=== PATIENT | female | born 1970 | race Caucasian/White ===

== ENCOUNTER 2018-08-19 01:48 | Inpatient (IN) | payer OTHER ==
[~2018-08-19] VITALS: Ht 165.1 cm; Wt 105.0 kg
[2018-08-19] VITALS (26 sets, daily range): BP systolic 138–178; BP diastolic 35–99; PULSE 80–96; RESP 16–20; Ht 165.1 cm; Wt 105.0 kg
[2018-08-19] MEDS ORDERED: DOCUSATE SODIUM 100 MG CAP PO PRN (03:30)
[2018-08-19] MEDS ORDERED: NACL 0.9% 3 ML SYG IV SCH ×2 (03:30)
[2018-08-19] MEDS ORDERED: BISACODYL (EC) 5 MG TAB PO PRN (03:30)
[2018-08-19] MEDS ORDERED: ONDANSETRON 4 MG TAB PO PRN (03:30)
[2018-08-19] MEDS ORDERED: DEXTROSE 50% 50 ML SYRINGE IV PRN ×2 (04:00)
[2018-08-19] MEDS ORDERED: GLUCAGON 1 MG INJ IM PRN (04:00)
[2018-08-19] MEDS ORDERED: GLUCOSE GEL 15 GRAM TUBE PO PRN ×2 (04:00)
[2018-08-19] MEDS ORDERED: GLUCOSE GEL 15 GRAM TUBE BUCCAL PRN (04:00)
--- NOTE | 2018-08-19 07:26 | HP ---
Date/Time of Note Date/Time of Note DATE: 08/19/18 TIME: 07:12 Assessment/Plan VTE Prophylaxis SCD applied (from Nsg): Yes Pharmacological prophylaxis: NA/contraindicated Pharm contraindication: low risk/ambulating Lines/Catheters IV Catheter Type (from Nrsg): Saline Lock Urinary Cath still in place: No Assessment/Plan Hospital Course This is a 48 old female being admitted to the telemetry floor for observation for: #1 dyspnea: Likely secondary to volume overload from hypertensive urgency. Patient did receive Lasix at the transfer facility. At the current time she is not in any acute distress. She has mild crackles at the base. Will consult nephrology for dialysis today. Avoid any nephrotoxic agents. #2 chest discomfort: Likely secondary from volume overload however will rule out ACS. She is currently not complaining of any chest pain. Will nonetheless check cardiac enzymes x2. Will check an echocardiogram. #3 hypertensive urgency: Blood pressure on arrival is improved at systolic of 164. PRN hydralazine. For systolic greater than 170 and will need to continue patient's Coreg #4 end-stage renal disease: On hemodialysis Sunday, again we will dialyze the patient today. Please see #1. Will consult nephrology Dr. Barclay #5 hypertension: Continue Coreg #6. Diabetes mellitus: We will check hemoglobin A1c, continue patient's home insulin regimen of insulin lispro 25 units subcu q. before meals, Insulin detemir 45 units subcu a.m., Insulin detemir 55 units subcu at bedtime, insulin sliding scale #7Hyperlipidemia: Continue statin #8. DVT GI prophylaxis: SCDs, no GI prophylaxis indicated Further treatment strategy will be implemented as per the clinical course. Result Diagram: 08/19/18 0433 08/19/18 0433 Results 24hrs Laboratory Tests Test 08/19/18 04:33 White Blood Count 11.1 H Red Blood Count 3.38 L Hemoglobin 10.0 L Hematocrit 30.5 L Mean Corpuscular Volume 90.2 Mean Corpuscular Hemoglobin 29.6 Mean Corpuscular Hemoglobin Concent 32.8 Red Cell Distribution Width 12.9 Platelet Count 162 Mean Platelet Volume 11.8 H Immature Granulocytes % 0.300 Neutrophils % 73.3 Lymphocytes % 18.0 Monocytes % 6.0 Eosinophils % 1.9 Basophils % 0.5 Nucleated Red Blood Cells % 0.0 Immature Granulocytes # 0.030 Neutrophils # 8.1 H Lymphocytes # 2.0 Monocytes # 0.7 Eosinophils # 0.2 Basophils # 0.1 Nucleated Red Blood Cells # 0.0 Sodium Level 137 Potassium Level 5.0 Chloride Level 101 Carbon Dioxide Level 22 Anion Gap 14 H Blood Urea Nitrogen 78 H Creatinine 6.90 H Est Glomerular Filtrat Rate mL/min 6 L Glucose Level 299 H Hemoglobin A1c 9.1 H Calcium Level 8.3 L Magnesium Level 2.1 Total Bilirubin 0.4 Direct Bilirubin 0.00 Indirect Bilirubin 0.4 Aspartate Amino Transf (AST/SGOT) 13 L Alanine Aminotransferase (ALT/SGPT) 15 Alkaline Phosphatase 153 H Total Protein 6.6 Albumin 3.3 Globulin 3.30 H Albumin/Globulin Ratio 1.00 Serum HCG, Qualitative NEGATIVE HPI/ROS Admit Date/Time Admit Date/Time Aug 19, 2018 at 02:22 Hx of Present Illness Chief complaint: 3 days of shortness of breath and mild chest discomfort next This is a 48 old female with a past medical history of hypertension insulin- dependent diabetes mellitus and end-stage renal disease on dialysis Sunday who presented to [facility] complaining of 3 days of shortness of breath. Patient reported that she had progressively worsening shortness of breath starting on Sunday. It was associated with some mild ches t discomfort with associated bilateral lower extremity edema and orthopnea. She reported the pain in her chest was central and nonradiating and nonexertional. She received dialysis last Sunday. She denies any fevers chills cough. She denies having any hemoptysis or melena or hematochezia. Upon arrival to [facility] patient was noted to be in no acute distress. She denied any chest pain. She did report that her shortness of breath is slightly improved. Pertinent laboratory findings from the transferring facility please see chart for full details: Vitals: Temperature 98.6/respirations 20/heart rate 100/BP 183/90 2/100% on room air CBC: White blood cell count 8.6/hemoglobin 11.3/hematocrit 34/platelets 158 BMP: Sodium 132/potassium 4.1/chloride 91/carbon dioxide 25/creatinine 6 glucose 523 ProBNP 5744 Troponin 36 with a repeat 38 delta troponin 2 Chest x-ray: Cardiomegaly. Mild vascular congestion without definitive edema. Next EKG: Normal sinus rhythm with normal intervals. No ST elevations or depressions. Allergies: NKDA Medications: Aspirin 81 mg p.o. daily Lasix 40 mg p.o. twice daily daily Calcium acetate 657 mg p.o. daily Coreg 12.5 mg p.o. twice daily Gabapentin 300 mg p.o. Sunday Insulin lispro 25 units subcu q. before meals Insulin detemir 45 units subcu a.m. Insulin detemir 55 units subcu at bedtime Folic acid 1 mg p.o. daily Atorvastatin 40 mg p.o. nightly ROS Const: As per HPI Eyes : No pain discharge or redness or change in visual acuity ENT: No pain, sore throat, congestion, congestion, dysphagia or discharge Respiratory: As per HPI Cardiovascular: As per HPI GI : no change in appetite, abdominal pain, nausea, vomiting, diarrhea, constipation, or change in the color his stool Genitourinary: No dysuria, hematuria, flank pain , discharge or CVA tenderness Musculoskeletal: No joint pain, back pain, neck pain, restricted range of motion in neck or joints Skin: No rash, bruising or hives Neuro: No headache, dizziness, syncope, seizure, focal weakness Endocrine: No polyuria, polydipsia, temperature intolerance Psych: No hallucination, depression, anxiety or suicidal ideation PMH/Family/Social Past Medical History Hypertension, hypercholesterolemia, insulin dependent diabetes mellitus, end- stage renal disease on hemodialysis, left eye blindness secondary to diabetic retinopathy Medications Current Medications IV Flush (NS 3 ml) 3 ml PER PROTOCOL IV ; Start 08/19/18 at 03:30 IV Flush (NS 3 ml) 3 ml PER PROTOCOL IV ; Start 08/19/18 at 03:30 Ondansetron HCl (Zofran Tab) 4 mg Q6H PRN PO NAUSEA/VOMITING; Start 08/19/18 at 03:30 Acetaminophen (Tylenol Tab) 650 mg Q6H PRN PO .PAIN 1-3 OR TEMP; Start 08/19/18 at 03:30 Docusate Sodium (Colace) 100 mg Q12H PRN PO .CONSTIPATION; Start 08/19/18 at 03:30 Bisacodyl (Dulcolax) 5 mg DAILY PRN PO .CONSTIPATION; Start 08/19/18 at 03:30 Diagnostic Test (Pha) (Accu-Chek) 1 ea 02 XX ; Start 08/20/18 at 02:00 Insulin Aspart (Novolog Insulin Pen) NOVOLOG *MILD* ALGORITHM WITH MEALS BEDTIME SC ; Start 08/19/18 at 07:55 Miscellaneous Information 1 ea NOTE XX ; Start 08/19/18 at 04:00 Glucose (Glutose) 15 gm Q15M PRN PO DECREASED GLUCOSE; Start 08/19/18 at 04:00 Glucose (Glutose) 22.5 gm Q15M PRN PO DECREASED GLUCOSE; Start 08/19/18 at 04:00 Dextrose (D50w Syringe) 25 ml Q15M PRN IV DECREASED GLUCOSE; Start 08/19/18 at 04:00 Dextrose (D50w Syringe) 50 ml Q15M PRN IV DECREASED GLUCOSE; Start 08/19/18 at 04:00 Glucagon (Glucagen) 1 mg Q15M PRN IM DECREASED GLUCOSE; Start 08/19/18 at 04:00 Glucose (Glutose) 15 gm Q15M PRN BUCCAL DECREASED GLUCOSE; Start 08/19/18 at 04:00 Coded Allergies: No Known Allergy (Unverified , 08/19/18) Past Surgical History Right chest permacath, failed left upper extremity AV fistula, x1, left eye surgery Family History Significant Family History: no pertinent family hx Social History Alcohol Use: none Smoking Status: Never smoker Drug Use: none Exam/Review of Systems Vital Signs Vitals Vital Signs Date Temp Pulse Resp B/P (MAP) Pulse Ox O2 O2 Flow FiO2 Time Delivery Rate 08/19/18 98.0 96 20 141/73 98 04:37 (95) 08/19/18 Room Air 02:30 Exam Exam General: This is a pleasant female currently sitting upright in bed in no acute distress HEENT: Atraumatic, normocephalic. The pupils are equal, round and reactive. Extraocular motor are intact Neck: Supple with full range of motion. No rigidity or meningismus Chest: Nontender Lungs: Breath sounds slightly diminished bilaterally, no overt wheezing appreciated, mild crackles at the bases Heart: Normal S1-S2, Regular rhythm and rate. 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 No guarding no rebound tenderness , No masses or organomegaly. No costovertebral temporal angle mass Extremities: Right great toe blister Neurologic: Normal mental status, speech normal, cranial nerves II through XII are intact, motor and sensory are intact, ZARIA CAM Aug 19, 2018 07:23
[2018-08-19] MEDS ORDERED: ASPI-817 PO (08:10)
[2018-08-19] MEDS ORDERED: CARV12.579 PO (08:10)
[2018-08-19] MEDS ORDERED: CALC667C PO (08:10)
[2018-08-19] MEDS ORDERED: FOLI-49 PO (08:10)
[2018-08-19] MEDS ORDERED: GABA300C16 PO (08:10)
[2018-08-19] MEDS ORDERED: INSU100C SQ (08:10)
[2018-08-19] MEDS ORDERED: ATOR40TA68 PO (08:10)
[2018-08-19] MEDS ORDERED: FURO40TA4 PO (08:10)
[2018-08-19] MEDS ORDERED: LEVEM (08:10)
[2018-08-19] MEDS: ACETAMINOPHEN 325 MG TAB PO PRN ×2 (08:13→19:43)
[2018-08-19] MEDS: INSULIN ASPART [NOVOLOG] 3 ML PEN SC SCH ×6 (08:35→20:24)
[2018-08-19] MEDS: GABAPENTIN 300 MG CAP PO SCH (12:12)
[2018-08-19] MEDS: CALCIUM ACETATE 667 MG CAP PO SCH ×2 (12:12→17:46)
[2018-08-19] MEDS: ASPIRIN (EC) 81 MG TAB PO SCH (12:15)
--- NOTE | 2018-08-19 12:16 | PN ---
Date/Time of Note Date/Time of Note DATE: 08/19/18 TIME: 12:15 Objective Vitals Vital Signs Date Temp Pulse Resp B/P (MAP) Pulse Ox O2 O2 Flow FiO2 Time Delivery Rate 08/19/18 98.5 87 18 173/86 97 Room Air 11:13 (115) Results Result Diagram: 08/19/18 0433 08/19/18 0433 Medications Medications Current Medications IV Flush (NS 3 ml) 3 ml PER PROTOCOL IV ; Start 08/19/18 at 03:30 IV Flush (NS 3 ml) 3 ml PER PROTOCOL IV ; Start 08/19/18 at 03:30 Ondansetron HCl (Zofran Tab) 4 mg Q6H PRN PO NAUSEA/VOMITING; Start 08/19/18 at 03:30 Acetaminophen (Tylenol Tab) 650 mg Q6H PRN PO .PAIN 1-3 OR TEMP Last administered on 08/19/18at 08:13; Admin Dose 650 MG; Start 08/19/18 at 03:30 Docusate Sodium (Colace) 100 mg Q12H PRN PO .CONSTIPATION; Start 08/19/18 at 03:30 Bisacodyl (Dulcolax) 5 mg DAILY PRN PO .CONSTIPATION; Start 08/19/18 at 03:30 Diagnostic Test (Pha) (Accu-Chek) 1 ea 02 XX ; Start 08/20/18 at 02:00 Insulin Aspart (Novolog Insulin Pen) NOVOLOG *MILD* ALGORITHM WITH MEALS BEDTIME SC Last administered on 08/19/18at 12:11; Admin Dose 4 UNIT; Start 08/19/18 at 07:55 Miscellaneous Information 1 ea NOTE XX ; Start 08/19/18 at 04:00 Glucose (Glutose) 15 gm Q15M PRN PO DECREASED GLUCOSE; Start 08/19/18 at 04:00 Glucose (Glutose) 22.5 gm Q15M PRN PO DECREASED GLUCOSE; Start 08/19/18 at 04:00 Dextrose (D50w Syringe) 25 ml Q15M PRN IV DECREASED GLUCOSE; Start 08/19/18 at 04:00 Dextrose (D50w Syringe) 50 ml Q15M PRN IV DECREASED GLUCOSE; Start 08/19/18 at 04:00 Glucagon (Glucagen) 1 mg Q15M PRN IM DECREASED GLUCOSE; Start 08/19/18 at 04:00 Glucose (Glutose) 15 gm Q15M PRN BUCCAL DECREASED GLUCOSE; Start 08/19/18 at 04:00 Aspirin (Halfprin) 81 mg DAILY PO Last administered on 08/19/18at 12:15; Admin Dose 81 MG; Start 08/19/18 at 12:00 Atorvastatin Calcium (Lipitor) 40 mg QHS PO ; Start 08/19/18 at 21:00 Calcium Acetate (Phoslo) 667 mg WITH MEALS PO Last administered on 08/19/18at 12:12; Admin Dose 667 MG; Start 08/19/18 at 11:50 Carvedilol (Coreg) 12.5 mg BID PO ; Start 08/19/18 at 21:00 Folic Acid (Folic Acid) 1 mg DAILY PO ; Start 08/20/18 at 09:00 Furosemide (Lasix) 40 mg BID DIURETICS PO ; Start 08/19/18 at 21:00 Gabapentin (Neurontin) 600 mg MONWEDFRI PO Last administered on 08/19/18at 12:12; Admin Dose 600 MG; Start 08/19/18 at 12:00 Insulin Glargine (Lantus) 21 units DAILY@2000 SC ; Start 08/19/18 at 20:00 Insulin Aspart (Novolog Insulin Pen) 7 unit WITH MEALS SC Last administered on 08/19/18at 12:11; Admin Dose 7 UNIT; Start 08/19/18 at 11:50 VTE Prophylaxis Risk score (from Nsg)>0 risk: 1 SCD applied (from Ns): Yes Lines/Catheters IV Catheter Type: Gotti in Place: No Assessment/Plan Hospital Course Short progress note as H&P was done earlier today, patient has no chest pain, no shortness of breath, will continue to trend troponins, podiatry will be seen for patient has a unexplained right foot hematoma, likely secondary to trauma, x-ray pending. Patient feels well, if no further issues will likely be discharged tomorrow unless podiatry has other plans. JASON ALMENDAREZ Aug 19, 2018 12:16
--- NOTE | 2018-08-19 14:14 | CONS ---
DATE OF ADMISSION: 08/19/2018 DATE OF CONSULTATION: 08/19/2018 TYPE OF CONSULTATION: Nephrology. REASON FOR CONSULTATION: End-stage renal disease. REQUESTING PHYSICIAN: Royal Cam MD HISTORY OF PRESENT ILLNESS: This is a 48-year-old female with a past medical history of end-stage re nal disease on dialysis Sunday, Sunday, Sunday with access of PermCath. History of hypertension, history of diabetes, history of dyslipidemia, who presented to outside hospital to be due to shortnes s of breath. The patient states that she has had progressive shortness of breath since Sunday with mild chest discomfort. The patient denied any hemoptysis, hematemesis, hematochezia. The patient u abiodun arrival to an outside hospital was noted to have markedly elevated BNP. Chest x-ray showed vascu lar congestion. The patient was then subsequently transferred to [facility]. Upon my evaluation, the patient is . She is currently describing mild shortness of breath. She otherwise denies any fevers, chills, nausea, vomiting. PAST MEDICAL HISTORY: History of hypertension, dyslipidemia, end-stage renal disease, diabetes. PAST SURGICAL HISTORY: Status post PermCath placement. FAMILY HISTORY: No family history of kidney disease. SOCIAL HISTORY: Does not drink, smoke or do drugs. MEDICATIONS: Reviewed. REVIEW OF SYSTEMS: A 14-point review of systems was conducted. Pertinent positives stated in HPI, o therwise negative. PHYSICAL EXAMINATION: VITAL SIGNS: Blood pressure is 173/86, respiration 18, pulse 87, temperature 98.5. HEENT: Head is normocephalic. NECK: Supple. HEART: Regular rate. LUNGS: Show diminished breath sounds at the base. ABDOMEN: Soft, nontender to palpation. No rebound or guarding. EXTREMITIES: Negative for clubbing, cyanosis. Positive edema. DERMATOLOGIC: No rashes. MUSCULOSKELETAL: No joint effusion. NEUROLOGIC: No focal deficits. MEDICATIONS: Have been reviewed. LABORATORY DATA: Shows white count 11.1, hemoglobin 10.0, platelet count is 162. Sodium 137, potass ium 5.0, BUN 78, creatinine 6.90. Patient's chest x-ray was reviewed. ASSESSMENT AND PLAN: This is a 48-year-old female who presents with: 1. End-stage renal disease. Plan is for dialysis today. We will dialyze for 3 hours 2k bath, calci um 2.5, the goal ultrafiltration approximately 2 to 3 liters. 2. Volume overload. Etiology is secondary to end-stage renal disease. Plan for ultrafiltration wit h hemodialysis. 3. Shortness of breath. Etiology is secondary to pulmonary edema. We will plan for ultrafiltration . 4. Anemia. Continue to monitor hemoglobin and hematocrit levels. Will give Epogen as needed. 5. Mineral bone disorder, monitor calcium and phosphorus levels. 6. Hypertensive urgency in part due to increased intravascular volume. Continue ultrafiltration dalia lysis. Continue current blood pressure regimen. 7. Diabetes. Continue current insulin regimen. Thank you, Dr. Cam, for this interesting consult. It will be a pleasure to follow patient with jennifer suarez throughout the hospital course. Dictated By: ZACKERY PEREZ DO NR/NTS Conf#: [id number] DID#: [id number] CC: ROYAL CAM MD;*EndCC*
--- NOTE | 2018-08-19 17:46 | RADRPT ---
Echocardiogram Report Patient Name: ANA LUISA CARVAJALPatient ID: [id number] : 1970 (48y 7m)Study Date: 08/19/2018 8:39:27 AM Gender: FAccession #: [id number] Tech: Andres Mary [facility] [place] Location: [facility] Ref.Physician: ZARIA CAM Height(Cm): BSA: Weight(Kg): Quality: AdequateAccount #: Procedures: Echocardiographic Report: Transthoracic echocardiogram with complete 2D, M-Mode, and doppler examination. Indications: Volume Overload. Measurements: 2D/M Mode Doppler Measurement Value Normal Range Measurement Value Normal Range LVIDd 2D 5.0 [ 3.8 - 5.2 ] cm AV Peak Indra 1.8 [ 100.0 - 170.0 ] cm/sec LVIDs 2D 2.8 [ 2.2 - 3.5 ] cm AV Peak PG 12.0 [ 2.0 - 9.0 ] mmHg LVPWd 2D 1.2 [ 0.6 - 0.9 ] cm LVOT Peak Indra 1.0 [ 70.0 - 110.0 ] cm/sec IVSd 2D 1.2 [ 0.6 - 0.9 ] cm LVOT Peak PG 4.0 [ 2.0 - 6.0 ] mmHg AoR Diam 2D 2.5 [ 2.3 - 3.1 ] cm MV E Peak Indra 1.3 [ 60.0 - 130.0 ] cm/sec EDV 2D 117.0 [ 46.0 - 106.0 ] ml MV A Peak Indra 1.0 [ 100.0 - 120.0 ] cm/sec ESV 2D 30.9 [ 14.0 - 42.0 ] ml MV E/A 1.3 [ 0.8 - 1.5 ] ratio EF 2D 73.6 [ 54.0 - 74.0 ] percent MV Decel Time 162 [ 104 - 258 ] msec LA Dimen 2D 4.5 [ 2.7 - 3.8 ] cm Lat E` Indra 0.1 [ 10.0 - 15.0 ] cm/sec Lateral E/E` 14.9 [ 1.0 - 2.0 ] ratio Med E` Indra 0.1 cm/sec MV E/A 1.3 [ 0.8 - 1.5 ] ratio TR Peak Indra 2.1 [ 100.0 - 280.0 ] cm/sec TR Peak PG 18.0 mmHg RVSP 28.0 [ 10.0 - 36.0 ] mmHg Findings: Left Ventricle: Normal left ventricular systolic function. Normal left ventricular cavity size. Left ventricular wall thickness upper limits of normal. Ejection fraction is visually estimated at 60 %. Tissue Doppler/Mitral Doppler indices are consistent with impaired relaxation (Stage I diastolic dysfunction). Right Ventricle: Normal right ventricular size. Normal right ventricular systolic function. Left Atrium: There is mild enlargement of left atrium. Right Atrium: The right atrium is normal in size. Mitral Valve: Mild mitral leaflet calcification. Mild mitral annular calcification. Trace mitral regurgitation. Aortic Valve: No significant aortic stenosis or insufficiency. Aortic cusps appear mildly calcified. Tricuspid Valve: Normal appearance of the tricuspid valve. Estimated peak PA systolic pressure 28 mmHg. There is mild tricuspid regurgitation. Pulmonic Valve: Pulmonic valve not well visualized. Pericardium: Small pericardial effusion. Left pleural effusion seen. Aorta: Normal aortic root. IVC: Normal size and no respiratory collapse consistent with elevated right atrial pressure. Conclusions: Normal left ventricular systolic function. Normal left ventricular cavity size. Left ventricular wall thickness upper limits of normal. Ejection fraction is visually estimated at 60 %. Tissue Doppler/Mitral Doppler indices are consistent with impaired relaxation (Stage I diastolic dysfunction). There is mild enlargement of left atrium. Mild mitral leaflet calcification. Mild mitral annular calcification. Trace mitral regurgitation. No significant aortic stenosis or insufficiency. Aortic cusps appear mildly calcified. Normal appearance of the tricuspid valve. Estimated peak PA systolic pressure 28 mmHg. There is mild tricuspid regurgitation. Small pericardial effusion. Left pleural effusion seen. Electronically Signed By: Yann Varner 2018-08-19 17:45:08 PDT
[2018-08-19] MEDS: HEPARIN 1000 UNITS/ML 10 ML INJ CATHETER SCH (19:35)
[2018-08-19] MEDS ORDERED: INSULIN GLARGINE [LANTus] (100 UNITS/ML) SYG SC SCH (20:00)
[2018-08-19] MEDS: FUROSEMIDE 40 MG TAB PO SCH (20:46)
[2018-08-19] MEDS: ATORVASTATIN 40 MG TAB PO SCH (20:46)
[2018-08-19] MEDS: COLLAGENASE 5 GM (UD JAR) TOP SCH (21:03)
[2018-08-19] MEDS: SODIUM HYPOCHLORITE (1/40) 1 APPLIC BTL IRR SCH (21:43)
[2018-08-20] VITALS (13 sets, daily range): BP systolic 120–146; BP diastolic 56–65; PULSE 74–83; RESP 18–20
[2018-08-20] MEDS: ACCU-CHEK XX SCH (02:00)
[2018-08-20] MEDS ORDERED: ACCU-CHEK XX SCH (02:00)
[2018-08-20] MEDS: FUROSEMIDE 40 MG TAB PO SCH ×2 (06:17→17:55)
[2018-08-20] MEDS: ASPIRIN (EC) 81 MG TAB PO SCH (08:20)
[2018-08-20] MEDS: CALCIUM ACETATE 667 MG CAP PO SCH ×3 (08:20→17:54)
[2018-08-20] MEDS: COLLAGENASE 5 GM (UD JAR) TOP SCH (08:20)
[2018-08-20] MEDS: FOLIC ACID 1 MG TAB PO SCH (08:20)
[2018-08-20] MEDS: SODIUM HYPOCHLORITE (1/40) 1 APPLIC BTL IRR SCH (08:21)
[2018-08-20] MEDS: INSULIN ASPART [NOVOLOG] 3 ML PEN SC SCH ×7 (08:28→20:54)
[2018-08-20] MEDS ORDERED: COLLAGENASE 5 GM (UD JAR) TOP SCH (09:00)
[2018-08-20] MEDS ORDERED: SODIUM HYPOCHLORITE (1/40) 1 APPLIC BTL IRR SCH (09:00)
--- NOTE | 2018-08-20 09:11 | PN ---
DATE: 08/20/2018 SUBJECTIVE: The patient had hemodialysis yesterday, tolerated well. No other events noted. OBJECTIVE: VITAL SIGNS: Blood pressure is 129/59, pulse 80, respirations 20, temperature 98.6. HEENT: Head is normocephalic. NECK: Supple. HEART: Regular rate. LUNGS: Show diminished breath sounds at the base. ABDOMEN: Soft, nontender to palpation without rebound or guarding. EXTREMITIES: Negative for clubbing, cyanosis, no edema. DERMATOLOGIC: No rashes. MUSCULOSKELETAL: No joint effusion. NEUROLOGIC: No change in exam. MEDICATIONS: Reviewed. LABORATORY DATA: Reviewed. ASSESSMENT AND PLAN: 1. End-stage renal disease. The patient had hemodialysis yesterday, tolerated well. Plan is for di alysis tomorrow. 2. Volume overload, improving. Continue ultrafiltration dialysis. 3. Anemia. Continue to monitor hemoglobin and hematocrit levels. We will give Epogen as needed. 4. Mineral bone disorder, monitor calcium and phosphorus levels. 5. Hypertension, improving. Continue ultrafiltration dialysis. Continue current blood pressure reg imen. 6. Diabetes. Continue current insulin regimen. 7. Lower extremity wound. The patient was seen by podiatry, follow up recommendations. Dictated By: ZACKERY PEREZ DO NR/NTS Conf#: [id number] DID#: [id number] CC: JASON ALMENDAREZ MD; ZACKERY PEREZ DO; ZARIA ACM MD;*EndCC*
--- NOTE | 2018-08-20 11:00 | CONS ---
Assessment/Plan Assessment/Plan Assessment/Plan (Daily) Diabetic ulcer right foot Corns/callus Charcot R foot DM2 with peripheral neuropathy ESRD on HD HTN Plan Consent was obtained and performed bedside excisional debridement of right foot diabetic ulcer of skin/subQ with a pickup and scissors. Non-viable tissue, fibrotic tissue, and biofilm removed from the wound bed. Less than 20cm2 of area was debrided. Wound cultures were obtained. Left foot callus paring of 1 lesion. Copious irrigation of ulceration site. Dressing instructions were provided and continue daily. Patient to continue with HD as scheduled. No plan for OR debridement. Patient can follow up in outpatient clinic [facility]. Consultation Date/Type/Reason Admit Date/Time Aug 19, 2018 at 02:22 Date/Time of Note DATE: 08/20/18 TIME: 11:00 Hx of Present Illness 48 y/o F with past medical history of hypertension insulin-dependent diabetes mellitus and end-stage renal disease on dialysis Sunday who admitted for worsening shortness of breath, presents to the floor with right foot hematoma formation and callous to plantar left foot. 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 Patient denies recent injury to either side of her feet. She reports that she has numbness to her feet and her lesion sites went unnoticed for an unknown duration. Denies fever, chills, nausea, and vomiting or other constitutional symptoms. ROS negative except for HPI Past Medical History hypertension insulin-dependent diabetes mellitus and end-stage renal disease on dialysis Sunday Home Meds Reported Medications Calcium Acetate* (Calcium Acetate*) 667 Mg Capsule, 667 MG PO WITH MEALS, #30 CAP 08/19/18 Folic Acid* (Folic Acid*) 1 Mg Tablet, 1 MG PO DAILY, TAB 08/19/18 Insulin Lispro (Humalog) 100 Unit/1 Ml Cartridge, 100 UNIT SQ, EA 08/19/18 Insulin Detemir (Levemir) 100 Unit/1 Ml Vial 08/19/18 Atorvastatin* (Atorvastatin*) 40 Mg Tablet, 40 MG PO QHS, #30 TAB 08/19/18 Gabapentin* (Gabapentin*) 300 Mg Capsule, 600 MG PO MONWEDFRI, #180 CAP 08/19/18 Carvedilol* (Carvedilol*) 12.5 Mg Tablet, 12.5 MG PO BID, #60 TAB 08/19/18 Furosemide* (Furosemide*) 40 Mg Tablet, 40 MG PO BID, TAB 08/19/18 Aspirin* (Aspirin* EC) 81 Mg Tablet.dr, 81 MG PO DAILY, TAB 08/19/18 Medications Current Medications IV Flush (NS 3 ml) 3 ml PER PROTOCOL IV ; Start 08/19/18 at 03:30 IV Flush (NS 3 ml) 3 ml PER PROTOCOL IV ; Start 08/19/18 at 03:30 Ondansetron HCl (Zofran Tab) 4 mg Q6H PRN PO NAUSEA/VOMITING; Start 08/19/18 at 03:30 Acetaminophen (Tylenol Tab) 650 mg Q6H PRN PO .PAIN 1-3 OR TEMP Last a dministered on 08/19/18at 19:43; Admin Dose 650 MG; Start 08/19/18 at 03:30 Docusate Sodium (Colace) 100 mg Q12H PRN PO .CONSTIPATION; Start 08/19/18 at 03:30 Bisacodyl (Dulcolax) 5 mg DAILY PRN PO .CONSTIPATION; Start 08/19/18 at 03:30 Diagnostic Test (Pha) (Accu-Chek) 1 ea 02 XX ; Start 08/20/18 at 02:00 Insulin Aspart (Novolog Insulin Pen) NOVOLOG *MILD* ALGORITHM WITH MEALS BEDTIME SC Last administered on 08/20/18at 08:28; Admin Dose 3 UNIT; Start 08/19/18 at 07:55 Miscellaneous Information 1 ea NOTE XX ; Start 08/19/18 at 04:00 Glucose (Glutose) 15 gm Q15M PRN PO DECREASED GLUCOSE; Start 08/19/18 at 04:00 Glucose (Glutose) 22.5 gm Q15M PRN PO DECREASED GLUCOSE; Start 08/19/18 at 04: 00 Dextrose (D50w Syringe) 25 ml Q15M PRN IV DECREASED GLUCOSE; Start 08/19/18 at 04:00 Dextrose (D50w Syringe) 50 ml Q15M PRN IV DECREASED GLUCOSE; Start 08/19/18 at 04:00 Glucagon (Glucagen) 1 mg Q15M PRN IM DECREASED GLUCOSE; Start 08/19/18 at 04:00 Glucose (Glutose) 15 gm Q15M PRN BUCCAL DECREASED GLUCOSE; Start 08/19/18 at 04:00 Aspirin (Halfprin) 81 mg DAILY PO Last administered on 08/20/18 08:20; Admin Dose 81 MG; Start 08/19/18 at 12:00 Atorvastatin Calcium (Lipitor) 40 mg QHS PO Last administered on 08/19/18 20:46; Admin Dose 40 MG; Start 08/19/18 at 21:00 Calcium Acetate (Phoslo) 667 mg WITH MEALS PO Last administered on 08/20/18 08:20; Admin Dose 667 MG; Start 08/19/18 at 11:50 Carvedilol (Coreg) 12.5 mg BID PO Last administered on 08/20/18 08:21; Admin Dose 12.5 MG; Start 08/19/18 at 21:00 Folic Acid (Folic Acid) 1 mg DAILY PO Last administered on 08/20/18 08:20; Admin Dose 1 MG; Start 08/20/18 at 09:00 Furosemide (Lasix) 40 mg BID DIURETICS PO Last administered on 08/20/18 06:17; Admin Dose 40 MG; Start 08/19/18 at 21:00 Gabapentin (Neurontin) 600 mg MONWEDFRI PO Last administered on 08/19/18 12:12; Admin Dose 600 MG; Start 08/19/18 at 12:00 Insulin Glargine (Lantus) 21 units DAILY@2000 SC Last administered on 08/19/18 20:48; Admin Dose 21 UNITS; Start 08/19/18 at 20:00 Insulin Aspart (Novolog Insulin Pen) 7 unit WITH MEALS SC Last administered on 08/20/18 08:29; Admin Dose 7 UNIT; Start 08/19/18 at 11:50 Heparin Sodium (Porcine) (Heparin (1000 Units/ml)) 3,300 unit AFTER DIALYSIS CATHETER Last administered on 08/19/18 19:35; Admin Dose 3,300 UNIT; Start 08/19/18 at 16:30 Collagenase (Santyl) 1 applic DAILY TOP Last administered on 08/20/18 08:20; Admin Dose 1 APPLIC; Start 08/19/18 at 18:00 Sodium Hypochlorite (Dakin'S (Dilute )) 1 applic DAILY IRR Last administered on 3/12/19at 08:21; Admin Dose 1 APPLIC; Start 08/19/18 at 20:30 Allergies: Coded Allergies: No Known Allergy (Unverified , 08/19/18) Past Surgical History Right chest permacath, failed left upper extremity AV fistula, x1, left eye surgery Family History Significant Family History: no pertinent family hx Social History Alcohol Use: none Smoking Status: Never smoker Drug Use: none Exam/Review of Systems Exam Vitals Vital Signs Date Temp Pulse Resp B/P (MAP) Pulse Ox O2 O2 Flow FiO2 Time Delivery Rate 08/20/18 80 08:14 08/20/18 98.6 20 129/59 95 Room Air 07:29 (82) Intake and Output 08/19/18 08/19/18 08/20/18 1414:59 22:59 06:59 IntakeIntake Total 740 ml OutputOutput Total 3400 ml 600 ml BalanceBalance -2660 ml -600 ml Exam DP/PT pulses palpable Absent protective sensations Right medial 1st MPJ foot with bullae formation with serosanguinous drainage, there is an underlying ulceration 2.5 x 2 x 0.2cm granular in nature and unable to probe to bone, no proximal streaking Left plantar callus with dried hematoma formation There is right foot forefoot adduction with supination in resting position and there is HPK lesion to the plantar lateral right foot Muscle strength 5/5 in all compartments of the foot Foot X-ray R Prominent focal soft tissue swelling medial to the first MTP joint without evidence of acute fracture or dislocation. Midfoot arthropathy may be sequelae of old trauma or neuropathic arthropathy. Results Result Diagram: 08/20/1829 08/20/18 0629 Results 24hrs Laboratory Tests Test 08/19/18 11:40 08/19/18 12:01 08/19/18 14:21 08/19/18 17:35 Hepatitis B Surface NEGATIVE Antigen Hepatitis B Surface NEGATIVE Antibody Bedside Glucose 287 H 169 Creatine Kinase 58 Creatine Kinase 1.1 Index Creatinine Kinase MB 0.62 (Mass) Troponin I < 0.012 Test 08/19/18 20:20 08/20/18 06:29 08/20/18 08:19 Bedside Glucose 170 224 H White Blood Count 8.6 # Red Blood Count 3.70 L Hemoglobin 10.8 L Hematocrit 32.7 L Mean Corpuscular 88.4 Volume Mean Corpuscular 29.2 Hemoglobin Mean Corpuscular 33.0 Hemoglobin Concent Red Cell 12.8 Distribution Width Platelet Count 179 Mean Platelet Volume 11.2 H Immature 0.600 H Granulocytes % Neutrophils % 64.5 Lymphocytes % 23.5 Monocytes % 8.3 Eosinophils % 2.6 Basophils % 0.5 Nucleated Red Blood 0.0 Cells % Immature 0.050 H Granulocytes # Neutrophils # 5.5 Lymphocytes # 2.0 Monocytes # 0.7 Eosinophils # 0.2 Basophils # 0.0 Nucleated Red Blood 0.0 Cells # Sodium Level 135 Potassium Level 4.6 Chloride Level 96 L Carbon Dioxide Level 26 Anion Gap 13 Blood Urea Nitrogen 53 H Creatinine 5.29 H Est Glomerular 9 L Filtrat Rate mL/min Glucose Level 204 Calcium Level 8.7 Magnesium Level 2.0 Total Bilirubin 0.8 Direct Bilirubin 0.00 Indirect Bilirubin 0.8 Aspartate Amino 11 L Transf (AST/SGOT) Alanine 8 L Aminotransferase (AL T/SGPT) Alkaline Phosphatase 164 H Total Protein 7.0 Albumin 3.5 Globulin 3.50 H Albumin/Globulin 1.00 Ratio Medications Medication Current Medications IV Flush (NS 3 ml) 3 ml PER PROTOCOL IV ; Start 08/19/18 at 03:30 IV Flush (NS 3 ml) 3 ml PER PROTOCOL IV ; Start 08/19/18 at 03:30 Ondansetron HCl (Zofran Tab) 4 mg Q6H PRN PO NAUSEA/VOMITING; Start 08/19/18 at 03:30 Acetaminophen (Tylenol Tab) 650 mg Q6H PRN PO .PAIN 1-3 OR TEMP Last adminis tered on 08/19/18at 19:43; Admin Dose 650 MG; Start 08/19/18 at 03:30 Docusate Sodium (Colace) 100 mg Q12H PRN PO .CONSTIPATION; Start 08/19/18 at 03:30 Bisacodyl (Dulcolax) 5 mg DAILY PRN PO .CONSTIPATION; Start 08/19/18 at 03:30 Diagnostic Test (Pha) (Accu-Chek) 1 ea 02 XX ; Start 08/20/18 at 02:00 Insulin Aspart (Novolog Insulin Pen) NOVOLOG *MILD* ALGORITHM WITH MEALS BEDTIME SC Last administered on 08/20/18at 08:28; Admin Dose 3 UNIT; Start 08/19/18 at 07:55 Miscellaneous Information 1 ea NOTE XX ; Start 08/19/18 at 04:00 Glucose (Glutose) 15 gm Q15M PRN PO DECREASED GLUCOSE; Start 08/19/18 at 04:00 Glucose (Glutose) 22.5 gm Q15M PRN PO DECREASED GLUCOSE; Start 08/19/18 at 04:00 Dextrose (D50w Syringe) 25 ml Q15M PRN IV DECREASED GLUCOSE; Start 08/19/18 at 04:00 Dextrose (D50w Syringe) 50 ml Q15M PRN IV DECREASED GLUCOSE; Start 08/19/18 at 04:00 Glucagon (Glucagen) 1 mg Q15M PRN IM DECREASED GLUCOSE; Start 08/19/18 at 04:00 Glucose (Glutose) 15 gm Q15M PRN BUCCAL DECREASED GLUCOSE; Start 08/19/18 at 04:00 Aspirin (Halfprin) 81 mg DAILY PO Last administered on 08/20/18 08:20; Admin Dose 81 MG; Start 08/19/18 at 12:00 Atorvastatin Calcium (Lipitor) 40 mg QHS PO Last administered on 08/19/18at 20:46; Admin Dose 40 MG; Start 08/19/18 at 21:00 Calcium Acetate (Phoslo) 667 mg WITH MEALS PO Last administered on 08/20/18 08:20; Admin Dose 667 MG; Start 08/19/18 at 11:50 Carvedilol (Coreg) 12.5 mg BID PO Last administered on 08/20/18 08:21; Admin Dose 12.5 MG; Start 08/19/18 at 21:00 Folic Acid (Folic Acid) 1 mg DAILY PO Last administered on 08/20/18 08:20; Adm in Dose 1 MG; Start 08/20/18 at 09:00 Furosemide (Lasix) 40 mg BID DIURETICS PO Last administered on 08/20/18 06:17; Admin Dose 40 MG; Start 08/19/18 at 21:00 Gabapentin (Neurontin) 600 mg MONWEDFRI PO Last administered on 08/19/18 12:12; Admin Dose 600 MG; Start 08/19/18 at 12:00 Insulin Glargine (Lantus) 21 units DAILY@2000 SC Last administered on 08/19/18at 20:48; Admin Dose 21 UNITS; Start 08/19/18 at 20:00 Insulin Aspart (Novolog Insulin Pen) 7 unit WITH MEALS SC Last administered on 08/20/18 08:29; Admin Dose 7 UNIT; Start 08/19/18 at 11:50 Heparin Sodium (Porcine) (Heparin (1000 Units/ml)) 3,300 unit AFTER DIALYSIS CATHETER Last administered on 08/19/18 19:35; Admin Dose 3,300 UNIT; Start 08/19/18 at 16:30 Collagenase (Santyl) 1 applic DAILY TOP Last administered on 08/20/18 08:20; Admin Dose 1 APPLIC; Start 08/19/18 at 18:00 Sodium Hypochlorite (Dakin'S (Dilute )) 1 applic DAILY IRR Last administered on 08/20/18 08:21; Admin Dose 1 APPLIC; Start 08/19/18 at 20:30 SOL GALEANO DPM Aug 20, 2018 11:00
--- NOTE | 2018-08-20 11:14 | CONS ---
Assessment/Plan Assessment/Plan Assessment/Plan (Daily) Diabetic ulcer right foot Corns/callus Charcot R foot DM2 with peripheral neuropathy ESRD on HD HTN Plan Wound cultures pending. Continue with daily dressing changes. Patient to continue with HD as scheduled. No plan for OR debridement. MRI and non- invasive arterial studies ordered. Discussed with patient possible surgical correction of charcot deformity in right foot in the future. Patient can follow up in outpatient clinic [facility]. Consultation Date/Type/Reason Admit Date/Time Aug 19, 2018 at 02:22 Initial Consult Date Date/Time of Note DATE: 08/20/18 TIME: 11:14 24 HR Interval Summary Free Text/Dictation no acute events overnight. Exam/Review of Systems Exam Vitals Vital Signs Date Temp Pulse Resp B/P (MAP) Pulse Ox O2 O2 Flow FiO2 Time Delivery Rate 08/20/18 80 08:14 08/20/18 98.6 20 129/59 95 Room Air 07:29 (82) Intake and Output 08/19/18 08/19/18 08/20/18 1515:00 23:00 07:00 IntakeIntake Total 740 ml OutputOutput Total 3400 ml 600 ml BalanceBalance -2660 ml -600 ml Exam DP/PT pulses palpable Absent protective sensations Right medial 1st MPJ foot with bullae formation with serosanguinous drainage, t here is an underlying ulceration 2.5 x 2 x 0.2cm granular in nature and unable to probe to bone, no proximal streaking Left plantar callus with dried hematoma formation There is right foot forefoot adduction with supination in resting position and there is HPK lesion to the plantar lateral right foot Muscle strength 5/5 in all compartments of the foot Foot X-ray R Prominent focal soft tissue swelling medial to the first MTP joint without evidence of acute fracture or dislocation. Midfoot arthropathy may be sequelae of old trauma or neuropathic arthropathy. Results Result Diagram: 08/20/18 0629 08/20/18 0629 Results 24hrs Laboratory Tests Test 08/19/18 11:40 08/19/18 12:01 08/19/18 14:21 08/19/18 17:35 Hepatitis B Surface NEGATIVE Antigen Hepatitis B Surface NEGATIVE Antibody Bedside Glucose 287 H 169 Creatine Kinase 58 Creatine Kinase 1.1 Index Creatinine Kinase MB 0.62 (Mass) Troponin I < 0.012 Test 08/19/18 20:20 08/20/18 06:29 08/20/18 08:19 Bedside Glucose 170 224 H White Blood Count 8.6 # Red Blood Count 3.70 L Hemoglobin 10.8 L Hematocrit 32.7 L Mean Corpuscular 88.4 Volume Mean Corpuscular 29.2 Hemoglobin Mean Corpuscular 33.0 Hemoglobin Concent Red Cell 12.8 Distribution Width Platelet Count 179 Mean Platelet Volume 11.2 H Immature 0.600 H Granulocytes % Neutrophils % 64.5 Lymphocytes % 23.5 Monocytes % 8.3 Eosinophils % 2.6 Basophils % 0.5 Nucleated Red Blood 0.0 Cells % Immature 0.050 H Granulocytes # Neutrophils # 5.5 Lymphocytes # 2.0 Monocytes # 0.7 Eosinophils # 0.2 Basophils # 0.0 Nucleated Red Blood 0.0 Cells # Sodium Level 135 Potassium Level 4.6 Chloride Level 96 L Carbon Dioxide Level 26 Anion Gap 13 Blood Urea Nitrogen 53 H Creatinine 5.29 H Est Glomerular 9 L Filtrat Rate mL/min Glucose Level 204 Calcium Level 8.7 Magnesium Level 2.0 Total Bilirubin 0.8 Direct Bilirubin 0.00 Indirect Bilirubin 0.8 Aspartate Amino 11 L Transf (AST/SGOT) Alanine 8 L Aminotransferase (AL T/SGPT) Alkaline Phosphatase 164 H Total Protein 7.0 Albumin 3.5 Globulin 3.50 H Albumin/Globulin 1.00 Ratio Medications Medication Current Medications IV Flush (NS 3 ml) 3 ml PER PROTOCOL IV ; Start 08/19/18 at 03:30 IV Flush (NS 3 ml) 3 ml PER PROTOCOL IV ; Start 08/19/18 at 03:30 Ondansetron HCl (Zofran Tab) 4 mg Q6H PRN PO NAUSEA/VOMITING; Start 08/19/18 at 03:30 Acetaminophen (Tylenol Tab) 650 mg Q6H PRN PO .PAIN 1-3 OR TEMP Last administered on 08/19/18at 19:43; Admin Dose 650 MG; Start 08/19/18 at 03:30 Docusate Sodium (Colace) 100 mg Q12H PRN PO .CONSTIPATION; Start 08/19/18 at 03:30 Bisacodyl (Dulcolax) 5 mg DAILY PRN PO .CONSTIPATION; Start 08/19/18 at 03:30 Diagnostic Test (Pha) (Accu-Chek) 1 ea 02 XX ; Start 08/20/18 at 02:00 Insulin Aspart (Novolog Insulin Pen) NOVOLOG *MILD* ALGORITHM WITH MEALS BEDTIME SC Last administered on 08/20/18at 08:28; Admin Dose 3 UNIT; Start 08/19/18 at 07:55 Miscellaneous Information 1 ea NOTE XX ; Start 08/19/18 at 04:00 Glucose (Glutose) 15 gm Q15M PRN PO DECREASED GLUCOSE; Start 08/19/18 at 04:00 Glucose (Glutose) 22.5 gm Q15M PRN PO DECREASED GLUCOSE; Start 08/19/18 at 04:00 Dextrose (D50w Syringe) 25 ml Q15M PRN IV DECREASED GLUCOSE; Start 08/19/18 at 04:00 Dextrose (D50w Syringe) 50 ml Q15M PRN IV DECREASED GLUCOSE; Start 08/19/18 at 04:00 Glucagon (Glucagen) 1 mg Q15M PRN IM DECREASED GLUCOSE; Start 08/19/18 at 04:00 Glucose (Glutose) 15 gm Q15M PRN BUCCAL DECREASED GLUCOSE; Start 08/19/18 at 04:00 Aspirin (Halfprin) 81 mg DAILY PO Last administered on 08/20/18 08:20; Admin Dose 81 MG; Start 08/19/18 at 12:00 Atorvastatin Calcium (Lipitor) 40 mg QHS PO Last administered on 08/19/18at 20:46; Admin Dose 40 MG; Start 08/19/18 at 21:00 Calcium Acetate (Phoslo) 667 mg WITH MEALS PO Last administered on 08/20/18 08:20; Admin Dose 667 MG; Start 08/19/18 at 11:50 Carvedilol (Coreg) 12.5 mg BID PO Last administered on 08/20/18 08:21; Admin Dose 12.5 MG; Start 08/19/18 at 21:00 Folic Acid (Folic Acid) 1 mg DAILY PO Last administered on 08/20/18 08:20; Admin Dose 1 MG; Start 08/20/18 at 09:00 Furosemide (Lasix) 40 mg BID DIURETICS PO Last administered on 08/20/18 06:17; Admin Dose 40 MG; Start 08/19/18 at 21:00 Gabapentin (Neurontin) 600 mg MONWEDFRI PO Last administered on 08/19/18 12:12; Admin Dose 600 MG; Start 08/19/18 at 12:00 Insulin Glargine (Lantus) 21 units DAILY@2000 SC Last administered on 08/19/18 20:48; Admin Dose 21 UNITS; Start 08/19/18 at 20:00 Insulin Aspart (Novolog Insulin Pen) 7 unit WITH MEALS SC Last administered on 08/20/18 08:29; Admin Dose 7 UNIT; Start 08/19/18 at 11:50 Heparin Sodium (Porcine) (Heparin (1000 Units/ml)) 3,300 unit AFTER DIALYSIS CATHETER Last administered on 08/19/18 19:35; Admin Dose 3,300 UNIT; Start 04/29 at 16:30 Collagenase (Santyl) 1 applic DAILY TOP Last administered on 08/20/18 08:20; Admin Dose 1 APPLIC; Start 08/19/18 at 18:00 Sodium Hypochlorite (Dakin'S (Dilute 40)) 1 applic DAILY IRR Last administered on 08/20/18 08:21; Admin Dose 1 APPLIC; Start 08/19/18 at 20:30 SOL GALEANO DPM Aug 20, 2018 11:14
[2018-08-20] MEDS: CIPROFLOXACIN 500 MG TAB PO SCH (13:00)
--- NOTE | 2018-08-20 16:00 | PN ---
Date/Time of Note Date/Time of Note DATE: 08/20/18 TIME: 15:57 Objective Vitals Vital Signs Date Temp Pulse Resp B/P (MAP) Pulse Ox O2 O2 Flow FiO2 Time Delivery Rate 08/20/18 98.0 74 18 138/63 98 Room Air 15:33 (88) Intake and Output 08/19/18 08/19/18 08/20/18 1515:00 23:00 07:00 IntakeIntake Total 740 ml OutputOutput Total 3400 ml 600 ml BalanceBalance -2660 ml -600 ml Results Result Diagram: 08/20/18 0629 08/20/18628 Medications Medications Current Medications IV Flush (NS 3 ml) 3 ml PER PROTOCOL IV ; Start 08/19/18 at 03:30 IV Flush (NS 3 ml) 3 ml PER PROTOCOL IV ; Start 08/19/18 at 03:30 Ondansetron HCl (Zofran Tab) 4 mg Q6H PRN PO NAUSEA/VOMITING; Start 08/19/18 at 03:30 Acetaminophen (Tylenol Tab) 650 mg Q6H PRN PO .PAIN 1-3 OR TEMP Last administered on 08/19/18at 19:43; Admin Dose 650 MG; Start 08/19/18 at 03:30 Docusate Sodium (Colace) 100 mg Q12H PRN PO .CONSTIPATION; Start 08/19/18 at 03:30 Bisacodyl (Dulcolax) 5 mg DAILY PRN PO .CONSTIPATION; Start 08/19/18 at 03:30 Diagnostic Test (Pha) (Accu-Chek) 1 ea 02 XX ; Start 08/20/18 at 02:00 Insulin Aspart (Novolog Insulin Pen) NOVOLOG *MILD* ALGORITHM WITH MEALS BEDTIME SC Last administered on 08/20/18at 13:02; Admin Dose 5 UNIT; Start 08/19/18 at 07:55 Miscellaneous Information 1 ea NOTE XX ; Start 08/19/18 at 04:00 Glucose (Glutose) 15 gm Q15M PRN PO DECREASED GLUCOSE; Start 08/19/18 at 04:00 Glucose (Glutose) 22.5 gm Q15M PRN PO DECREASED GLUCOSE; Start 08/19/18 at 04:00 Dextrose (D50w Syringe) 25 ml Q15M PRN IV DECREASED GLUCOSE; Start 08/19/18 at 04:00 Dextrose (D50w Syringe) 50 ml Q15M PRN IV DECREASED GLUCOSE; Start 08/19/18 at 04:00 Glucagon (Glucagen) 1 mg Q15M PRN IM DECREASED GLUCOSE; Start 08/19/18 at 04:00 Glucose (Glutose) 15 gm Q15M PRN BUCCAL DECREASED GLUCOSE; Start 08/19/18 at 04:00 Aspirin (Halfprin) 81 mg DAILY PO Last administered on 08/20/18 08:20; Admin Dose 81 MG; Start 08/19/18 at 12:00 Atorvastatin Calcium (Lipitor) 40 mg QHS PO Last administered on 08/19/18 20:46; Admin Dose 40 MG; Start 08/19/18 at 21:00 Calcium Acetate (Phoslo) 667 mg WITH MEALS PO Last administered on 08/20/18 12:53; Admin Dose 667 MG; Start 08/19/18 at 11:50 Carvedilol (Coreg) 12.5 mg BID PO Last administered on 08/20/18 08:21; Admin Dose 12.5 MG; Start 08/19/18 at 21:00 Folic Acid (Folic Acid) 1 mg DAILY PO Last administered on 08/20/18 08:20; Admin Dose 1 MG; Start 08/20/18 at 09:00 Furosemide (Lasix) 40 mg BID DIURETICS PO Last administered on 08/20/18 06:17; Admin Dose 40 MG; Start 08/19/18 at 21:00 Gabapentin (Neurontin) 600 mg MONWEDFRI PO Last administered on 08/19/18 12 :12; Admin Dose 600 MG; Start 08/19/18 at 12:00 Heparin Sodium (Porcine) (Heparin (1000 Units/ml)) 3,300 unit AFTER DIALYSIS CATHETER Last administered on 08/19/18 19:35; Admin Dose 3,300 UNIT; Start 08/19/18 at 16:30 Collagenase (Santyl) 1 applic DAILY TOP Last administered on 08/20/18 08:20; Admin Dose 1 APPLIC; Start 08/19/18 at 18:00 Sodium Hypochlorite (Dakin'S (Dilute 40)) 1 applic DAILY IRR Last administered on 08/20/18 08:21; Admin Dose 1 APPLIC; Start 08/19/18 at 20:30 Ciprofloxacin (Cipro) 500 mg DAILY PO Last administered on 08/20/18at 13:00; Admin Dose 500 MG; Start 08/20/18 at 13:00 Doxycycline Hyclate (Vibramycin) 100 mg BID PO ; Start 08/20/18 at 21:00 Insulin Aspart (Novolog Insulin Pen) 10 unit WITH MEALS SC ; Start 08/20/18 at 17:55 Insulin Glargine (Lantus) 26 units DAILY@2000 SC ; Start 08/20/18 at 20:00 VTE Prophylaxis Risk score (from Ns)>0 risk: 2 [place] [facility] [place]/Catheters IV Catheter Type: Gotti in Place: No Assessment/Plan Hospital Course Subjective Patient doing well Objective Physical exam General: Patient is laying in bed and answers questions appropriately Mentation: Patient is alert and oriented 4, Head: Normocephalic atraumatic Eyes: EOMI, pupils reactive to light Neck: Supple, nontender, midline Respiratory: Clear to auscultation bilaterally Cardiovascular: regular rate, no obvious murmurs Gastrointestinal: non-tender to palpation, bowel sounds heard. Neurological: Moves all extremities spontaneously Skin: Right foot wound, bandaged Assessment and plan Shortness of breath -Secondary to volume overload, resolved -Hemodialysis as needed Chest discomfort -Troponin negative, resolved Hypertensive urgency -Likely secondary volume overload, resolved End-stage renal disease -Nephrology to dialyze as needed Diabetic foot wound -Podiatry to see patient, wound care done -Patient to follow-up outpatient, MRI and venous studies done for possible outpatient intervention -Infectious disease consulted for antibiotic suggestion Hypertension -Continue home meds Dyslipidemia Home meds Disposition -Podiatry finishing up workup but MRI is pending, ID consultation pending, patient likely discharge tomorrow after dialysis. JASON ALMENDAREZ Aug 20, 2018 16:00
--- NOTE | 2018-08-20 16:03 | CONS ---
DATE OF ADMISSION: 08/19/2018 DATE OF CONSULTATION: 08/20/2018 TYPE OF CONSULTATION: Infectious disease. REQUESTING PHYSICIAN: Jason Arnold MD Thank you Dr. Arnold, for this consultation. HISTORY OF PRESENT ILLNESS: This is a well-developed, obese, middle-aged woman with a past medical history significant for end-stage renal disease, diabetes, hypertension, hyperlipidemia, right chest PermCath, who was admitted with shortness of breath with chest x-ray revealed mild vascular congestion. The patient also came with right foot swelling and cellulitis. She is being seen by Dr. John in podiatry consultation. ALLERGIES: THE PATIENT IS NOT ALLERGIC TO ANY ANTIBIOTICS. ANTIBIOTICS: She was started on: 1. Ciprofloxacin. 2. Oral doxycycline. LABORATORY DATA: On admission WBC 11.1 with shift to the left today. Today, WBC is 8.6, platelets 179, neutrophils 64.5. SOCIAL HISTORY: The patient came from home. Denies smoking, alcohol or illicits. REVIEW OF SYSTEMS: As per history of present illness. Currently, the patient denies nausea, vomiting, diarrhea. No fevers. No chills. She remains afebrile. PHYSICAL EXAMINATION: GENERAL: This is a well-developed, obese, very pleasant, middle-aged woman who is alert, in no distress. HEENT: Head is atraumatic, normocephalic. Sclerae are anicteric. Buccal mucosa is pink. NECK: Supple. CHEST: Rise symmetrical. Breath sounds are clear, diminished to bases. HEART: S1, S2. ABDOMEN: Soft. Bowel tones are present. EXTREMITIES: With bilateral chronic changes of the feet, some swelling and dressing intact. DIAGNOSTIC IMPRESSION: A 48-year-old woman came with shortness of breath likely secondary to fluid overload as well as diabetic ulceration of her right foot and Charcot of right foot. The patient had a debridement at bedside by Dr. John. She is on appropriate antibiotics regimen. X-ray of the foot on admission revealed no evidence of acute fracture or dislocation. Wound culture is still pending. MRI pending. We will continue her on current antibiotics for now. Further recommendations per patient's clinical course, cultures and diagnostics. Pt may be dc on oral antibiotics if she doesn't have osteomyelitis,and if ok with podiatry. I discussed with Dr. Wu who was covering Dr. Mcgowan. Dictated By: DEVON KYLE GUEST ROOM INSPECTOR for NICOLE FONTENOT/DEBORAH Conf#: [id number] DID#: [id number] CC: JASON ARNOLD MD; ZARIA CAM MD;*EndCC* MTDD
[2018-08-20] MEDS ORDERED: INSULIN GLARGINE [LANTus] (100 UNITS/ML) SYG SC SCH (20:00)
[2018-08-20] MEDS: DOXYCYCLINE 100 MG TAB PO SCH (20:54)
[2018-08-20] MEDS: ATORVASTATIN 40 MG TAB PO SCH (20:54)
[2018-08-21] VITALS (24 sets, daily range): BP systolic 133–174; BP diastolic 66–95; PULSE 70–107; RESP 18–20
[2018-08-21] MEDS: ACCU-CHEK XX SCH (02:04)
[2018-08-21] MEDS: FUROSEMIDE 40 MG TAB PO SCH ×2 (05:39→18:00)
[2018-08-21] MEDS: ACETAMINOPHEN 325 MG TAB PO PRN (05:41)
[2018-08-21] MEDS: CIPROFLOXACIN 500 MG TAB PO SCH (08:28)
[2018-08-21] MEDS: FOLIC ACID 1 MG TAB PO SCH (08:28)
[2018-08-21] MEDS: DOXYCYCLINE 100 MG TAB PO SCH (08:28)
[2018-08-21] MEDS: CALCIUM ACETATE 667 MG CAP PO SCH ×3 (08:28→18:00)
[2018-08-21] MEDS: ASPIRIN (EC) 81 MG TAB PO SCH (08:28)
[2018-08-21] MEDS: COLLAGENASE 5 GM (UD JAR) TOP SCH (08:29)
[2018-08-21] MEDS: SODIUM HYPOCHLORITE (1/40) 1 APPLIC BTL IRR SCH (08:29)
[2018-08-21] MEDS: INSULIN ASPART [NOVOLOG] 3 ML PEN SC SCH ×6 (08:45→18:07)
--- NOTE | 2018-08-21 08:50 | PN ---
DATE: 08/21/2018 SUBJECTIVE: The patient is stable. The patient is scheduled for dialysis today. OBJECTIVE: VITAL SIGNS: Blood pressure is 144/67, pulse 77, respirations 20, temperature 98.4. HEENT: Head is normocephalic. NECK: Supple. HEART: Regular rate. LUNGS: Show diminished breath sounds at the base. ABDOMEN: Soft, nontender to palpation without rebound or guarding. EXTREMITIES: Negative for clubbing, cyanosis, no edema. DERMATOLOGIC: No rashes. MUSCULOSKELETAL: No joint effusion. NEUROLOGIC: No change in exam. MEDICATIONS: Reviewed. LABORATORY DATA: Show sodium 137, BUN 75, creatinine 6.66. White count 8.6, hemoglobin 9.3, platele t count is 168. ASSESSMENT AND PLAN: 1. End-stage renal disease. Plan is for hemodialysis today. We will dialyze 3 hours 3k bath, calci um 2.5. 2. Volume overload. Continue ultrafiltration dialysis. 3. Anemia. Continue to monitor hemoglobin and hematocrit levels. Continue Epogen. 4. Mineral bone disorder, monitor calcium and phosphorus levels. 5. Hypertension, improving. Continue ultrafiltration dialysis. 6. Diabetes. Continue current insulin regimen. 7. Lower extremity wounds. Continue wound care by podiatry. Dictated By: ZACKERY PEREZ DO NR/NTS Conf#: [id number] DID#: [id number] CC: ZARIA CAM MD; JASON ALMENDAREZ MD; ZACKERY PEREZ DO;*EndCC*
[2018-08-21] MEDS ORDERED: VANCOMYCIN IV PER PHARMACY XX SCH (09:30)
[2018-08-21] MEDS: GABAPENTIN 300 MG CAP PO SCH (09:50)
[2018-08-21] MEDS ORDERED: VANCOMYCIN HCL 2 GM in SOD CHLORIDE 0.9% 500 ML IVPB ONE (11:00)
[2018-08-21] MEDS ORDERED: CIPR500T4 PO (12:16)
--- NOTE | 2018-08-21 12:18 | PDOCDIS ---
Discharge Instructions CONDITION [id number] Patient Condition: [id number] Stable FOLLOW UP/APPOINTMENTS Follow-up Plan Please follow-up with your primary care provider as soon as possible to get a referral to podiatry for continued foot care. Please finish all antibiotics. Please take records of your MRI to bring to your primary care provider and to show to your military lawyer. Continue all other home medications JASON ALMENDAREZ Aug 21, 2018 12:18
--- NOTE | 2018-08-21 12:21 | DS ---
Date/Time of Note Date/Time of Note DATE: 08/21/18 TIME: 12:20 Discharge Summary Admission/Discharge Info Admit Date/Time Aug 19, 2018 at 02:22 Discharge Date/Time Patient Condition: Stable Hospital Course Patient is a female the past medical history significant for end-stage renal disease on dialysis and diabetes and hypertension who presents to [facility] for shortness of breath. Patient shortness of breath is related to her volume overload due to inadequate dialysis and immediately resolved with dialysis. However patient was also diagnosed with a diabetic foot wound incidentally found on admission and podiatry also saw patient. Infectious disease also saw patient and recommended 2 weeks of IV antibiotics as well as oral antibiotics for the diabetic foot wound. MRI and other studies were done per podiatry however podiatry stated that patient can follow-up in the outpatient setting for possible elective surgery in the future. It was instructed for patient to take her MRI results to her primary care provider or her future marble mechanic helper. Patient will be discharged once IV antibiotics are a rranged. Discharge diagnosis Shortness of breath, resolved Chest discomfort, resolved Hypertensive urgency, resolved End-stage renal disease, on hemodialysis Diabetic foot wound, IV antibiotics Hypertension Dyslipidemia Home Meds Active Scripts Ciprofloxacin Hcl* (Ciprofloxacin Hcl*) 500 Mg Tablet, 500 MG PO QPM for 13 Days, #13 TAB Prov:JASON ALMENDAREZ 08/21/18 Reported Medications Calcium Acetate* (Calcium Acetate*) 667 Mg Capsule, 667 MG PO WITH MEALS, #30 CAP 08/19/18 Folic Acid* (Folic Acid*) 1 Mg Tablet, 1 MG PO DAILY, TAB 08/19/18 Insulin Lispro (Humalog) 100 Unit/1 Ml Cartridge, 100 UNIT SQ, EA 08/19/18 Insulin Detemir (Levemir) 100 Unit/1 Ml Vial 08/19/18 Atorvastatin* (Atorvastatin*) 40 Mg Tablet, 40 MG PO QHS, #30 TAB 08/19/18 Gabapentin* (Gabapentin*) 300 Mg Capsule, 600 MG PO MONWEDFRI, #180 CAP 08/19/18 Carvedilol* (Carvedilol*) 12.5 Mg Tablet, 12.5 MG PO BID, #60 TAB 08/19/18 Furosemide* (Furosemide*) 40 Mg Tablet, 40 MG PO BID, TAB 08/19/18 Aspirin* (Aspirin* EC) 81 Mg Tablet.dr, 81 MG PO DAILY, TAB 08/19/18 Follow-up Plan Please follow-up with your primary care provider as soon as possible to get a referral to podiatry for continued foot care. Please finish all antibiotics. Please take records of your MRI to bring to your primary care provider and to show to your marble mechanic helper. Continue all other home medications Primary Care Provider Care Physician No Primary Time spent on discharge: > 30 minutes Pending Labs Laboratory Tests Test 08/20/18 12:52 08/20/18 17:54 08/20/18 20:50 08/21/18 01:55 Bedside 301 211 214 252 Glucose mg/dL (70-220) mg/dL (70-220) mg/dL (70-220) mg/dL (70-220) Test 08/21/18 06:04 08/21/18 08:27 White Blood 8.6 Count 10^3/ul (4.8-10 .8) Red Blood 3.83 Count 10^6/ul (4.20-5 .40) Hemoglobin 11.3 g/dl (12.0-16.0 ) Hematocrit 33.9 % (37.0-47.0) Mean 88.5 Corpuscular fl (82.0-101.0) Volume Mean 29.5 Corpuscular pg (29.0-33.0) Hemoglobin Mean 33.3 Corpuscular g/dl (32.0-37.0 Hemoglobin Conc ) ent Red Cell 12.8 Distribution % (11.5-14.5) Width Platelet Count 168 10^3/UL (140-41 5) Mean Platelet 11.8 Volume fl (7.4-10.4) Immature 0.400 Granulocytes % % (0.001-0.429) Neutrophils % 63.0 % (39.0-77.0) Lymphocytes % 23.8 % (15.0-51.0) Monocytes % 9.8 % (0.0-11.0) Eosinophils % 2.5 % (0.0-7.0) Basophils % 0.5 % (0.0-2.0) Nucleated Red 0.0 Blood Cells % /100WBC (0.0-0. 0) Immature 0.030 Granulocytes # 10^3/ul (0.0-0. 031) Neutrophils # 5.4 10^3/ul (1.6-7. 5) Lymphocytes # 2.0 10^3/ul (0.8-2. 9) Monocytes # 0.8 10^3/ul (0.3-0. 9) Eosinophils # 0.2 10^3/ul (0.0-0. 5) Basophils # 0.0 10^3/ul (0.0-0. 1) Nucleated Red 0.0 Blood Cells # 10^3/ul (0.0-0. 0) Sodium Level 137 mmol/L (135-144 ) Potassium 4.7 Level mmol/L (3.5-5.1 ) Chloride Level 99 mmol/L (97-110) Carbon Dioxide 24 Level mmol/L (21-31) Anion Gap 14 (5-13) Blood Urea 75 mg/dl (7-20) Nitrogen Creatinine 6.66 mg/dl (0.44-1.0 0) Est Glomerular 7 mL/min (>60) Filtrat Rate mL/min Glucose Level 242 mg/dl (70-220) Calcium Level 8.7 mg/dl (8.4-10.2 ) Magnesium 2.3 Level mg/dl (1.7-2.5) Total 0.4 Bilirubin mg/dl (0.2-1.3) Direct 0.00 Bilirubin mg/dl (0.00-0.2 0) Indirect 0.4 Bilirubin mg/dl (0-1.1) Aspartate Amino 10 IU/L (15-46) Transf (AST/SGO T) Alanine 13 IU/L (13-69) Aminotransferas e (ALT/SGPT) Alkaline 172 Phosphatase IU/L (42-121) Total Protein 6.8 g/dl (6.1-8.1) Albumin 3.5 g/dl (3.3-4.9) Globulin 3.30 g/dl (1.3-3.2) Albumin/Globuli 1.06 n Ratio Bedside 237 Glucose mg/dL (70-220) JASON ALMENDAREZ Aug 21, 2018 12:21
--- NOTE | 2018-08-21 13:46 | CONS ---
Assessment/Plan Assessment/Plan Hospital Course (Demo Recall) 1200. Patient is alert in hemodialysis looks comfortable, no fevers. WBC 8.6 no shift no bands. Wound culture and MRSA swab negative. Antimicrobials: Vancomycin, oral Cipro Indwelling's left chest permacath PHYSICAL EXAMINATION: GENERAL: This is a well-developed, obese, very pleasant, middle-aged woman who is alert, in no distress. HEENT: Head is atraumatic, normocephalic. Sclerae are anicteric. Buccal mucosa is pink. NECK: Supple. CHEST: Rise symmetrical. Breath sounds are clear, diminished to bases. HEART: S1, S2. ABDOMEN: Soft. Bowel tones are present. EXTREMITIES: With bilateral chronic changes of the feet, some swelling and dressing intact. Assessment: 1. Right diabetic foot ulceration 2. End-stage renal disease 3. Obesity and diabetes Plan: Patient remained stable, no evidence for osteomyelitis per MRI, okay to discharge on current antibiotics to complete 2 weeks Consultation Date/Type/Reason Admit Date/Time Aug 19, 2018 at 02:22 Initial Consult Date Type of Consult id Date/Time of Note DATE: 08/21/18 TIME: 13:45 Exam/Review of Systems Exam Vitals Vital Signs Date Temp Pulse Resp B/P (MAP) Pulse Ox O2 O2 Flow FiO2 Time Delivery Rate 08/21/18 75 13:25 08/21/18 98.7 20 167/77 99 Room Air 11:42 (107) Intake and Output 08/20/18 08/20/18 08/21/18 1515:00 23:00 07:00 IntakeIntake Total 500 ml 800 ml OutputOutput Total 650 ml BalanceBalance -150 ml 800 ml Results Result Diagram: 08/21/18 0604 08/21/18 0604 Results 24hrs Laboratory Tests Test 08/20/18 17:54 08/20/18 20:50 08/21/18 01:55 08/21/18 06:04 Bedside Glucose 211 214 252 H White Blood Count 8.6 Red Blood Count 3.83 L Hemoglobin 11.3 L Hematocrit 33.9 L Mean Corpuscular 88.5 Volume Mean Corpuscular 29.5 Hemoglobin Mean Corpuscular 33.3 Hemoglobin Concent Red Cell 12.8 Distribution Width Platelet Count 168 Mean Platelet Volume 11.8 H Immature 0.400 Granulocytes % Neutrophils % 63.0 Lymphocytes % 23.8 Monocytes % 9.8 Eosinophils % 2.5 Basophils % 0.5 Nucleated Red Blood 0.0 Cells % Immature 0.030 Granulocytes # Neutrophils # 5.4 Lymphocytes # 2.0 Monocytes # 0.8 Eosinophils # 0.2 Basophils # 0.0 Nucleated Red Blood 0.0 Cells # Sodium Level 137 Potassium Level 4.7 Chloride Level 99 Carbon Dioxide Level 24 Anion Gap 14 H Blood Urea Nitrogen 75 H Creatinine 6.66 H Est Glomerular 7 L Filtrat Rate mL/min Glucose Level 242 H Calcium Level 8.7 Magnesium Level 2.3 Total Bilirubin 0.4 Direct Bilirubin 0.00 Indirect Bilirubin 0.4 Aspartate Amino 10 L Transf (AST/SGOT) Alanine 13 Aminotransferase (AL T/SGPT) Alkaline Phosphatase 172 H Total Protein 6.8 Albumin 3.5 Globulin 3.30 H Albumin/Globulin 1.06 Ratio Test 08/21/18 08:27 08/21/18 12:37 Bedside Glucose 237 H 267 H Medications Medication Current Medications IV Flush (NS 3 ml) 3 ml PER PROTOCOL IV ; Start 08/19/18 at 03:30 IV Flush (NS 3 ml) 3 ml PER PROTOCOL IV ; Start 08/19/18 at 03:30 Ondansetron HCl (Zofran Tab) 4 mg Q6H PRN PO NAUSEA/VOMITING; Start 08/19/18 at 03:30 Acetaminophen (Tylenol Tab) 650 mg Q6H PRN PO .PAIN 1-3 OR TEMP Last administer ed on 08/21/18at 05:41; Admin Dose 650 MG; Start 08/19/18 at 03:30 Docusate Sodium (Colace) 100 mg Q12H PRN PO .CONSTIPATION; Start 08/19/18 at 03:30 Bisacodyl (Dulcolax) 5 mg DAILY PRN PO .CONSTIPATION; Start 08/19/18 at 03:30 Diagnostic Test (Pha) (Accu-Chek) 1 ea 02 XX Last administered on 08/21/18at 02:04; Admin Dose 1 EA; Start 08/20/18 at 02:00 Insulin Aspart (Novolog Insulin Pen) NOVOLOG *MILD* ALGORITHM WITH MEALS BEDTIME SC Last administered on 08/21/18at 08:45; Admin Dose 3 UNIT; Start 08/19/18 at 07:55 Miscellaneous Information 1 ea NOTE XX ; Start 08/19/18 at 04:00 Glucose (Glutose) 15 gm Q15M PRN PO DECREASED GLUCOSE; Start 08/19/18 at 04:00 Glucose (Glutose) 22.5 gm Q15M PRN PO DECREASED GLUCOSE; Start 08/19/18 at 04:00 Dextrose (D50w Syringe) 25 ml Q15M PRN IV DECREASED GLUCOSE; Start 08/19/18 at 04:00 Dextrose (D50w Syringe) 50 ml Q15M PRN IV DECREASED GLUCOSE; Start 08/19/18 at 04:00 Glucagon (Glucagen) 1 mg Q15M PRN IM DECREASED GLUCOSE; Start 08/19/18 at 04:00 Glucose (Glutose) 15 gm Q15M PRN BUCCAL DECREASED GLUCOSE; Start 08/19/18 at 04:00 Aspirin (Halfprin) 81 mg DAILY PO Last administered on 08/21/18 08:28; Admin Dose 81 MG; Start 08/19/18 at 12:00 Atorvastatin Calcium (Lipitor) 40 mg QHS PO Last administered on 08/20/18 20:54; Admin Dose 40 MG; Start 08/19/18 at 21:00 Calcium Acetate (Phoslo) 667 mg WITH MEALS PO Last administered on 08/21/18 08:28; Admin Dose 667 MG; Start 08/19/18 at 11:50 Carvedilol (Coreg) 12.5 mg BID PO Last administered on 08/20/18 20:55; Admin Dose 12.5 MG; Start 08/19/18 at 21:00 Folic Acid (Folic Acid) 1 mg DAILY PO Last administered on 08/21/18 08:28; Admin Dose 1 MG; Start 08/20/18 at 09:00 Furosemide (Lasix) 40 mg BID DIURETICS PO Last administered on 08/21/18 05:39; Admin Dose 40 MG; Start 08/19/18 at 21:00 Gabapentin (Neurontin) 600 mg MONWEDFRI PO Last administered on 08/21/18 09:50; Admin Dose 600 MG; Start 08/19/18 at 12:00 Heparin Sodium (Porcine) (Heparin (1000 Units/ml)) 3,300 unit AFTER DIALYSIS CATHETER Last administered on 08/19/18at 19:35; Admin Dose 3,300 UNIT; Start 08/19/18 at 16:30 Collagenase (Santyl) 1 applic DAILY TOP Last administered on 08/21/18at 08:29; Admin Dose 1 APPLIC; Start 08/19/18 at 18:00 Sodium Hypochlorite (Dakin'S (Dilute )) 1 applic DAILY IRR Last administered on 08/21/18at 08:29; Admin Dose 1 APPLIC; Start 08/19/18 at 20:30 Ciprofloxacin (Cipro) 500 mg DAILY PO Last administered on 08/21/18at 08:28; Admin Dose 500 MG; Start 08/20/18 at 13:00 Insulin Aspart (Novolog Insulin Pen) 10 unit WITH MEALS SC Last administered on 08/21/18 08:53; Admin Dose 10 UNIT; Start 08/20/18 at 17:55 Insulin Glargine (Lantus) 26 units DAILY@2000 SC Last administered on 08/20/18at 20:54; Admin Dose 26 UNITS; Start 08/20/18 at 20:00 Vancomycin HCl (Vanco Iv Per Pharmacy) VANCOMYCIN PER PHARMACY PER PROTOCOL XX ; Start 08/21/18 at 09:30 Vancomycin HCl 2 gm/Sodium Chloride 500 ml @ 125 mls/hr LOADING DOSE ONCE IVPB ; Start 08/21/18 at 11:00; Stop 08/21/18 at 14:59 DEVON KYLE NP Aug 21, 2018 13:46
[2018-08-21] MEDS: HEPARIN 1000 UNITS/ML 10 ML INJ CATHETER SCH (15:47)
== END 2018-08-21 20:28 | disposition home health service (06) | DRG 264 ==
LOC: TEL 02:22
PROVIDERS: ADMIT Family Medicine; ATTEND Internal Medicine
PROC: 0JBQ0ZZ Excision of Right Foot Subcutaneous Tissue and Fascia, Open Approach (ICD-10-PCS; principal; 2018-08-19)
PROC: 5A1D70Z Performance of Urinary Filtration, Intermittent, Less than 6 Hours Per Day (ICD-10-PCS; 2018-08-19)
PROC: 5A1D70Z Performance of Urinary Filtration, Intermittent, Less than 6 Hours Per Day (ICD-10-PCS; 2018-08-21)
DX: I16.0 Hypertensive urgency (principal); N18.6 End stage renal disease; I50.23 Acute on chronic systolic (congestive) heart failure; E11.22 Type 2 diabetes mellitus with diabetic chronic kidney disease; E11.319 Type 2 diabetes mellitus with unspecified diabetic retinopathy without macular edema; E11.610 Type 2 diabetes mellitus with diabetic neuropathic arthropathy; E11.40 Type 2 diabetes mellitus with diabetic neuropathy, unspecified; E11.621 Type 2 diabetes mellitus with foot ulcer; L97.519 Non-pressure chronic ulcer of other part of right foot with unspecified severity; E87.70 Fluid overload, unspecified; I13.2 Hypertensive heart and chronic kidney disease with heart failure and with stage 5 chronic kidney disease, or end stage renal disease; Z99.2 Dependence on renal dialysis; E78.5 Hyperlipidemia, unspecified; D64.9 Anemia, unspecified; L84 Corns and callosities; H54.62 Unqualified visual loss, left eye, normal vision right eye; E66.9 Obesity, unspecified; Z68.38 Body mass index [BMI] 38.0-38.9, adult; Z79.82 Long term (current) use of aspirin; Z79.4 Long term (current) use of insulin
CPT/HCPCS: 71045; 73630; 73718; 73721; 80053; 82550; 82553; 82962; 83036; 83735; 84484; 84703; 85025; 86706; 87070; 87081; 87340; 90935; 93306; 93922; J1644; J1815; J3370; J7040

== ENCOUNTER 2019-02-25 09:08 | Emergency (ER) | payer OTHER ==
[~2019-02-25] VITALS: Wt 105.5 kg
[~2019-02-25 09:08] MED LIST: ACET325T33 PO; ASPI-817 PO; ASPI81TA52 PO; ATOR40TA68 PO; CALC0.2511 PO; CALC0.255 PO; CALC667C PO; CARV12.579 PO; CARV25TA79 ORAL; CARV25TA79 PO; CEPH-443 PO; CIPR500T4 PO; ERGO500013 PO; FOLI-49 PO; FURO-109 PO; FURO40TA4 PO; GABA300C16 PO; INSU100C SQ; INSU100I33 SC; INSU100I47 SQ; INSU100V3 IJ; L.AC460C PO; LEVEM; LISI40TA3 PO; NIFE60TA18 PO; NIFE90TA21 PO; OMEP20CA17 PO; OMEP40CA38 PO; SULF1TAB31 PO
[2019-02-25] MEDS ORDERED: ACETAMINOPHEN 325 MG TAB PO ONE (10:00)
[2019-02-25 12:07] VITALS: BP 168/77; PULSE 80; RESP 20
[2019-02-26] MEDS ORDERED: FENTAnyl 2MCG/ML-ROPIV 0.2% 100 ML ONE (03:25)
== END 2019-02-25 12:09 | disposition home or self-care (01) ==
LOC: E/R 09:08
DX: L03.116 Cellulitis of left lower limb (principal); I10 Essential (primary) hypertension; E11.9 Type 2 diabetes mellitus without complications; Z79.4 Long term (current) use of insulin; Z79.82 Long term (current) use of aspirin
CPT/HCPCS: 93971; Z7502; Z7610; J3010